=== PATIENT | male | born 1965 | race Caucasian/White ===

== ENCOUNTER 2017-01-27 11:54 | Emergency (ER) | payer MEDICARE ==
[~2017-01-27] VITALS: Ht 167.6 cm; Wt 70.8 kg
[~2017-01-27 11:54] MED LIST: ALPR2TAB7 PO; CARI350T27 PO; DIAZ10TA4 PO; FENT1PAT8 TD; MORP30TA PO; TEMA30CA PO
--- NOTE | 2017-01-27 11:56 | NUR ---
PT BIB RA FOR OVERDOSE, FOUND WITH 3 FENTANYL PATCHES. PT AWAKE ALERT ABLE TO MAKE NEEDS KNOWN. 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 BLOOD SAMPLE COLLECTED SENT TO LAB. PLACED ON MONITOR. AWAITING MD ORDER
[2017-01-27 12:16] LABS: BASOPHILS # (AUTO) 0.1 /CMM (0.0-0.2); BASOPHILS % (AUTO) 0.6 % (0.0-2.0); EOSINOPHILS # (AUTO) 0.6 /CMM (0.0-0.7); HEMATOCRIT 35 % (39-51); HEMOGLOBIN 11.9 g/dL (13.5-17.5); LYMPHOCYTES # (AUTO) 2.4 /CMM (0.8-4.8); LYMPHOCYTES % (AUTO) 20.8 % (20.0-44.0); MEAN CORPUSCULAR HEMOGLOBIN 33 PG (26.0-33.0); MEAN CORPUSCULAR HGB CONC 34 g/dl (31.0-36.0); MEAN CORPUSCULAR VOLUME 96 fL (80-96); MONOCYTES # (AUTO) 0.7 /CMM (0.1-1.30); MONOCYTES % (AUTO) 6.1 % (2.0-12.0); NEUTROPHILS # (AUTO) 7.9 /CMM (1.8-8.9); NEUTROPHILS % (AUTO) 67.5 % (43.0-81.0); PLATELET COUNT (AUTO) 190 /CMM (150-450); RDW COEFFICIENT OF VARIATION 14.1 (11.5-15.0); RED BLOOD CELL COUNT(AUTO) 3.66 MIL/uL (4.5-6.0); WHITE BLOOD COUNT (AUTO) 11.7 K/uL (4.3-11.0)
--- NOTE | 2017-01-27 12:20 | NUR ---
GAVE PT URINAL WAITING FOR URINE SAMPLE. MD LAUREANO
[2017-01-27 12:26] LABS: CALCIUM, SERUM 8.9 mg/dL (8.5-10.1); CARBON DIOXIDE 30 mmol/L (21-32); CHLORIDE 104 mmol/L (98-107); GFR 79 mL/min (>60); GLUCOSE 97 mg/dL (74-106); POTASSIUM 4.5 mmol/L (3.5-5.1); SODIUM SERUM 141 mmol/L (136-145); UREA NITROGEN, BLOOD 15 mg/dL (7-18)
[2017-01-27 12:36] LABS: ACETAMINOPHEN 0 ug/ml (10-30); ALANINE AMINOTRANSFERASE 22 U/L (12-78); ALBUMIN 3.5 g/dL (3.4-5.0); ALCOHOL, BLOOD < 3 mg/dL (0-0); ALKALINE PHOSPHATASE 97 U/L (46-116); ASPARTATE AMINOTRANSFERASE 20 U/L (15-37); BILIRUBIN,DIRECT 0.1 mg/dL (0.0-0.2); BILIRUBIN,TOTAL 0.3 mg/dL (0.2-1.0); SALICYLATE 6.1 mg/dL (2.8-20.0); TOTAL PROTEIN, SERUM 6.7 g/dL (6.4-8.2)
--- NOTE | 2017-01-27 14:13 | NUR ---
URINE SAMPLE COLLECTED SENT TO LAB
[2017-01-27 14:26] LABS: PHENCYCLIDINE SCREEN,URINE NEGATIVE (NEGATIVE)
[2017-01-27 14:27] LABS: CANNABINOID, URINE POSITIVE (NEGATIVE)
--- NOTE | 2017-01-27 15:18 | NUR ---
IV removed. Catheter intact and site benign. Pressure and 4x4 applied to site. No bleeding noted.Patient discharged to home in stable condition. Written and verbal after care instructions given. Patient verbalizes understanding of instruction.
[2017-01-27 15:19] VITALS: BP 112/78
== END 2017-01-27 15:20 | disposition home or self-care (01) ==
LOC: ER 11:55
DX: G92 Toxic encephalopathy (principal); G89.29 Other chronic pain; F17.200 Nicotine dependence, unspecified, uncomplicated; Z88.1 Allergy status to other antibiotic agents
CPT/HCPCS: 36415; 80048; 80076; 80305; 80329; 85025; 99284; A4606; G0480 ×2; G6039-TC; Z7610

== ENCOUNTER 2017-03-24 18:06 | Emergency (ER) | payer MEDICARE ==
[~2017-03-24] VITALS: Ht 180.3 cm; Wt 72.6 kg
--- NOTE | 2017-03-24 18:12 | NUR ---
PT BIBRA TO ER BED 11. C/O GENERALIZED WEAKNESS. POSSIBLE OD TO SOMA. LETHARGIC BUT AWAKE AND VERBALLY RESPONSIVE. PLACED ON MONITOR. STABLE VITALS. AWAITING ,MD BERMUDEZ.
--- NOTE | 2017-03-24 18:21 | NUR ---
DR GROSSMAN AT BEDSIDE FOR EVAL.
[2017-03-24] MEDS ORDERED: IV NS 0.9% 1,000 ML BAG IV ONE (18:30)
[2017-03-24] MEDS ORDERED: IV NS 0.9% 1,000 ML ONE (18:31)
[2017-03-24] MEDS ORDERED: IV SET PRIMARY 1 EA INFUS.SET MC ONE (18:31)
[2017-03-24 18:32] LABS: BASOPHILS % (AUTO) 0.5 % (0.0-2.0); EOSINOPHILS # (AUTO) 0.5 /CMM (0.0-0.7); EOSINOPHILS % (AUTO) 6.4 % (0.0-6.0); HEMATOCRIT 38 % (39-51); HEMOGLOBIN 12.6 g/dL (13.5-17.5); LYMPHOCYTES # (AUTO) 2.6 /CMM (0.8-4.8); LYMPHOCYTES % (AUTO) 33.7 % (20.0-44.0); MEAN CORPUSCULAR HEMOGLOBIN 32 PG (26.0-33.0); MEAN CORPUSCULAR HGB CONC 33 g/dl (31.0-36.0); MEAN CORPUSCULAR VOLUME 96 fL (80-96); MONOCYTES # (AUTO) 0.5 /CMM (0.1-1.30); MONOCYTES % (AUTO) 7.1 % (2.0-12.0); NEUTROPHILS % (AUTO) 52.3 % (43.0-81.0); PLATELET COUNT (AUTO) 183 /CMM (150-450); RDW COEFFICIENT OF VARIATION 14.4 (11.5-15.0); RED BLOOD CELL COUNT(AUTO) 3.96 MIL/uL (4.5-6.0); WHITE BLOOD COUNT (AUTO) 7.6 K/uL (4.3-11.0)
[2017-03-24 18:42] LABS: CALCIUM, SERUM 8.4 mg/dL (8.5-10.1); CREATININE 1.2 mg/dL (0.6-1.3); POTASSIUM 4.2 mmol/L (3.5-5.1)
--- NOTE | 2017-03-24 20:05 | NUR ---
IV removed. Catheter intact and site benign. Pressure and 4x4 applied to site. No bleeding noted.
--- NOTE | 2017-03-24 20:07 | NUR ---
PT IS AAO, AMBULATORY W/ STREADY GAIT. STATES WANT TO GO HOME. D/C IN STABLE CONDITION.
[2017-03-24 20:09] VITALS: BP 118/76
== END 2017-03-24 20:09 | disposition home or self-care (01) ==
LOC: ER 18:09
DX: T42.8X1A Poisoning by antiparkinsonism drugs and other central muscle-tone depressants, accidental (unintentional), initial encounter (principal); E86.0 Dehydration; D64.9 Anemia, unspecified; M54.5 Low back pain; G89.29 Other chronic pain; J44.9 Chronic obstructive pulmonary disease, unspecified; Z88.1 Allergy status to other antibiotic agents; F17.200 Nicotine dependence, unspecified, uncomplicated; Y92.89 Other specified places as the place of occurrence of the external cause
CPT/HCPCS: 36415; 80048; 85025; 99284; A4606; J7030; Z7610

== ENCOUNTER 2017-07-21 12:17 | Inpatient (IN) | payer MEDICARE ==
[~2017-07-21] VITALS: Ht 177.8 cm; Wt 72.6 kg
[2017-07-21] MEDS ORDERED: NALOXONE HCL 0.4 MG/ML AMPUL IV ONE (12:30)
--- NOTE | 2017-07-21 12:30 | NUR ---
PT BIBA FOR POSSIBLE OVERDOSE, AMS NOTED. NOTED 4 FENTANYL PATCH ON BOTH ARMS. MD AT BS FOR EVAL. RTS AT BS. IV ACCESS MANUFACTURING LABORER. SAFETY AND COMFORT MEASURES PROVIDED. WILL MONITOR.
[2017-07-21 12:35] LABS: BASOPHILS % (AUTO) 0.3 % (0.0-2.0); EOSINOPHILS # (AUTO) 0.7 /CMM (0.0-0.7); EOSINOPHILS % (AUTO) 4.4 % (0.0-6.0); HEMATOCRIT 37 % (39-51); HEMOGLOBIN 12.4 g/dL (13.5-17.5); LYMPHOCYTES # (AUTO) 3.3 /CMM (0.8-4.8); LYMPHOCYTES % (AUTO) 20.1 % (20.0-44.0); MEAN CORPUSCULAR HEMOGLOBIN 33 PG (26.0-33.0); MEAN CORPUSCULAR HGB CONC 33 g/dl (31.0-36.0); MEAN CORPUSCULAR VOLUME 100 fL (80-96); MONOCYTES % (AUTO) 6.3 % (2.0-12.0); NEUTROPHILS # (AUTO) 11.2 /CMM (1.8-8.9); NEUTROPHILS % (AUTO) 68.9 % (43.0-81.0); PLATELET COUNT (AUTO) 192 /CMM (150-450); RDW COEFFICIENT OF VARIATION 14.9 (11.5-15.0); RED BLOOD CELL COUNT(AUTO) 3.74 MIL/uL (4.5-6.0); WHITE BLOOD COUNT (AUTO) 16.3 K/uL (4.3-11.0)
--- NOTE | 2017-07-21 12:40 | NUR ---
XRAY DONE AT BS.
[2017-07-21 12:49] LABS: CREATININE 1.2 mg/dL (0.6-1.3)
[2017-07-21 12:53] LABS: ABG BASE EXCESS 7.4 mmol/L; ABG OXYGEN SATURATION 96.3 % (92.0-98.5); ABG PH 7.477 (7.350-7.450); ABG PO2 84.8 mmHg (75.0-100.0); AaDO2 12.2 mmHg; COHb 2.4 % (0.5-1.5); MetHb 0.4 % (0.0-1.5); O2Hb 93.6 % (94.0-97.0); SITE, ABG Right Radial; VENT MODE, BG ROOM AIR
[2017-07-21 12:55] LABS: ALBUMIN 3.8 g/dL (3.4-5.0); BILIRUBIN,TOTAL 0.2 mg/dL (0.2-1.0); TOTAL PROTEIN, SERUM 6.9 g/dL (6.4-8.2)
[2017-07-21 13:03] VITALS: BP 120/67
--- NOTE | 2017-07-21 14:14 | NUR ---
PT AWAKE, ALERT AND ORIENTED ADMITS TO TAKING 4 SOMA. DENIES SI. NURSING QUALITY ENGINEERING MANAGER AT BS. VSS.
[2017-07-21] MEDS ORDERED: DIAZ10TA4 PO (14:46)
[2017-07-21] MEDS ORDERED: TEMA30CA PO (14:46)
[2017-07-21] MEDS ORDERED: FENT1PAT6 TD (14:46)
[2017-07-21] MEDS ORDERED: ALPR2TAB7 PO (14:46)
[2017-07-21] MEDS ORDERED: CARI350T PO (14:46)
[2017-07-21] MEDS ORDERED: ALBU8.5H2 IH (14:46)
--- NOTE | 2017-07-21 14:46 | NUR ---
[facility] paged via exchange - Walleptvaibhav
--- NOTE | 2017-07-21 14:55 | NUR ---
report given to Jonny BAEZ, continue plan of care.
[2017-07-21 15:34] LABS: ALCOHOL, BLOOD < 3 mg/dL (0-0); SALICYLATE 4.2 mg/dL (2.8-20.0)
[2017-07-21 15:35] LABS: ACETAMINOPHEN < 2 ug/ml (10-30)
== END 2017-07-21 15:31 | disposition left against medical advice (07) | DRG 917 ==
LOC: ER 12:18 → TELE-TD 14:49
PROVIDERS: ADMIT Internal Medicine; ATTEND Internal Medicine
DX: T42.8X1A Poisoning by antiparkinsonism drugs and other central muscle-tone depressants, accidental (unintentional), initial encounter (principal); G92 Toxic encephalopathy; Y92.009 Unspecified place in unspecified non-institutional (private) residence as the place of occurrence of the external cause; Z79.899 Other long term (current) drug therapy; G89.29 Other chronic pain; Z88.1 Allergy status to other antibiotic agents; Z91.010 Allergy to peanuts
CPT/HCPCS: 36415; 36600; 70450-TC; 71010-TC; 80048-TC; 80076-TC; 85025-TC; 87081-TC; A4606; G0480; Z7610

== ENCOUNTER 2018-02-02 14:00 | Emergency (ER) | payer MEDICARE ==
[~2018-02-02] VITALS: Ht 172.7 cm; Wt 74.8 kg
[~2018-02-02 14:00] MED LIST changes: +ALBU8.5H8 IH; +CARI350T PO; -CARI350T27 PO; +FENT1PAT6 TD; -FENT1PAT8 TD; -MORP30TA PO
--- NOTE | 2018-02-02 14:49 | NUR ---
PT REFUSED CT SCAN. MD LAUREANO.
--- NOTE | 2018-02-02 15:33 | NUR ---
Patient discharged to home in stable condition. Written and verbal after care instructions given. Patient verbalizes understanding of instruction.IV removed. Catheter intact and site benign. Pressure and 4x4 applied to site. No bleeding noted. VSS upon discharge
[2018-02-02 15:37] VITALS: BP 128/81
== END 2018-02-02 15:47 | disposition home or self-care (01) ==
LOC: ER 14:03
DX: S01.81XA Laceration without foreign body of other part of head, initial encounter (principal); S80.811A Abrasion, right lower leg, initial encounter; G89.29 Other chronic pain; F17.200 Nicotine dependence, unspecified, uncomplicated; Z88.1 Allergy status to other antibiotic agents; Z60.2 Problems related to living alone; W01.0XXA Fall on same level from slipping, tripping and stumbling without subsequent striking against object, initial encounter; Y93.01 Activity, walking, marching and hiking; Y92.480 Sidewalk as the place of occurrence of the external cause; Y99.8 Other external cause status
CPT/HCPCS: 12011; 99283; A4606; A6402 ×2; Z7610

== ENCOUNTER 2019-07-12 12:11 | Inpatient (IN) | payer MEDICARE ==
[~2019-07-12] VITALS: Ht 177.8 cm; Wt 60.8 kg
[2019-07-12 12:53] LABS: BASOPHILS % (AUTO) 0.3 % (0.0-2.0); EOSINOPHILS % (AUTO) 0.5 % (0.0-6.0); HEMATOCRIT 37 % (39-51); HEMOGLOBIN 12.5 g/dL (13.5-17.5); LYMPHOCYTES # (AUTO) 2.2 /CMM (0.8-4.8); LYMPHOCYTES % (AUTO) 13.6 % (20.0-44.0); MEAN CORPUSCULAR HGB CONC 34 g/dl (31.0-36.0); MEAN CORPUSCULAR VOLUME 99 fL (80-96); MONOCYTES # (AUTO) 1.4 /CMM (0.1-1.30); MONOCYTES % (AUTO) 8.6 % (2.0-12.0); NEUTROPHILS # (AUTO) 12.4 /CMM (1.8-8.9); PLATELET COUNT (AUTO) 285 /CMM (150-450); RED BLOOD CELL COUNT(AUTO) 3.75 MIL/uL (4.5-6.0); WHITE BLOOD COUNT (AUTO) 16.1 K/uL (4.3-11.0)
--- NOTE | 2019-07-12 12:59 | NUR ---
CALLED [facility], PAGED VIKI
[2019-07-12 13:07] LABS: CALCIUM, SERUM 8.9 mg/dL (8.5-10.1); CREATININE 1.9 mg/dL (0.6-1.3)
[2019-07-12 13:11] LABS: POTASSIUM 2.6 mmol/L (3.5-5.1)
[2019-07-12 13:14] LABS: ALBUMIN 3.9 g/dL (3.4-5.0); BILIRUBIN,DIRECT 0.2 mg/dL (0.0-0.2); BILIRUBIN,TOTAL 0.7 mg/dL (0.2-1.0)
--- NOTE | 2019-07-12 13:16 | NUR ---
CALLED NURSING SUP FOR BED
[2019-07-12] MEDS ORDERED: DICY10SO PO (13:36)
[2019-07-12] MEDS ORDERED: OXYC10SY PO (13:36)
[2019-07-12] MEDS ORDERED: POTASSIUM CHLORIDE 20 MEQ TAB.PRT.SR PO ONE ×2 (13:51→14:00)
[2019-07-12] MEDS ORDERED: ASPIRIN 325 MG TABLET ONE (13:51)
[2019-07-12] MEDS ORDERED: POTASSIUM CL. PREMIX PERIPHER. 50 ML ONE (13:51)
[2019-07-12] MEDS ORDERED: ASPIRIN 325 MG TABLET PO ONE (14:00)
[2019-07-12] MEDS: POTASSIUM CL. PREMIX PERIPHER. 50 ML IV SCH ×4 (14:14→18:20)
--- NOTE | 2019-07-12 14:23 | NUR ---
REPORT GIVEN TO SESAR RN FOR CHERIE PT WILL BE TRANSPORTED TO 3RD FLOOR VIA ACLS PROTOCOL
--- NOTE | 2019-07-12 15:00 | NUR ---
MS/RN NOTE THE PATIENT IS RECEIVED ON A GURNEY. ASSISTED THE PATIENT TO BED. PATIENT ALERT AND ORIENTED X3. DENIES PAIN AT THIS TIME. IN ROOM AIR AND DENIES SOB. RESPIRATION REGULAR AND UNLABORED. RFA G 20 PATENT AND SALINE LOCKED. PATIENT IS GIVEN ORIENTED TO THE ROOM/UNIT AND HE VERBALIZED UNDERSTANDING. PATIENT IS NOTED TO OVERESTIMATES HIS PHYSICAL ABILITIES AND IS FALL RISK. VERBAL CUES ARE GIVEN TO INCREASE SAFETY AWARENESS AND PATIENT VERBALIZED UNDERSTANDING. BED LOW AND LOCKED. BED ALARM ON. CALL LIGHT WITHIN REACH. WILL CONTINUE TO MONITOR.
[2019-07-12 15:30] VITALS: BP 123/70
[2019-07-12 16:00] VITALS: BP 123/70
[2019-07-12] MEDS ORDERED: MAG HYDROX/AL HYDROX/SIMETH 30 ML UDC PO PRN (16:00)
[2019-07-12] MEDS ORDERED: HYDROCODONE/APAP 5/325MG 1 EACH TABLET PO PRN (16:00)
[2019-07-12] MEDS ORDERED: HYDROCODONE/APAP 10/325MG 1 EA TABLET PO PRN (16:00)
[2019-07-12] MEDS ORDERED: ZOLPIDEM TARTRATE 5 MG TABLET PO PRN (16:00)
[2019-07-12] MEDS ORDERED: ONDANSETRON HCL/PF 4 MG/2 ML VIAL IVP PRN (16:00)
[2019-07-12] MEDS ORDERED: MORPHINE SULFATE INJ 2 MG/ML DISP.SYRIN IV PRN (16:00)
[2019-07-12] MEDS ORDERED: Z GUARD REMEDY 2 OZ OINT TP PRN (16:00)
[2019-07-12] MEDS ORDERED: ACETAMINOPHEN 325 MG TABLET PO PRN (16:00)
[2019-07-12] MEDS ORDERED: MAGNESIUM HYDROXIDE 30 ML UDC PO PRN (16:00)
[2019-07-12] MEDS: DIAZEPAM 10 MG TABLET PO SCH (16:58)
[2019-07-12] MEDS: ENOXAPARIN SODIUM 40 MG/0.4 ML DISP.SYRIN SQ SCH (16:59)
--- NOTE | 2019-07-12 17:11 | NUR ---
MS/RN NOTE RECEIVED ORDER FROM DR DREW TO REPEAT TROPONIN 07/12/19 AT 1900. THE ORDER IS READ BACK, VERIFIED. NOTED AND CARRIED OUT.
[2019-07-12] MEDS: ALPRAZOLAM 1 MG TABLET PO SCH ×2 (17:54→21:00)
--- NOTE | 2019-07-12 18:20 | NUR ---
TELE/RN NOTE THE PATIENT IS ALERT AND ORIENTED X3. DENIES PAIN. IN ROOM AIR AND SATURATION IS AT 98%. DENIES SOB. RESPIRATION REGULAR AND UNLABORED. EXTERNAL TELE BOX READING IS S TACHY 117. THE PATIENT IN STABLE CONDITION RFA G 20 PATENT AND POTASSIUM CHLORIDE INFUSING PER ORDER AND NO S/S INFILTRATION NOTED. BED LOW AND LOCKED. BED ALARM ON. CALL LIGHT WITHIN REACH. WILL ENDORSE TO DETENTION DEPUTY.
--- NOTE | 2019-07-12 19:32 | NUR ---
SATELLITE INSTALLER NOTES RECEIVED PATIENT ASLEEP IN BED WITH NO DISTRESS NOTED. CALL LIGHT WITHIN REACH. PERIPHERAL LINE INTACT AND PATENT. NO C/O PAIN OR DISCOMFORT. ENCOURAGED USE OF CALL LIGHT FOR ASSISTANCE AND VERBALIZED GOOD UNDERSTANDING. BED IN LOW LOCK SETTING. ROOM FREE OF CLUTTER AND BELONGINGS KEPT NEAR BEDSIDE. BED ALARM ON AND FUNCTIONING PROPERLY. WILL CONTINUE TO MONITOR.
[2019-07-12 20:00] VITALS: BP 102/68
[2019-07-12] MEDS: TEMAZEPAM 15 MG CAPSULE PO SCH (21:33)
[2019-07-12 21:42] VITALS: BP 134/70
[2019-07-13] VITALS: BP 108/60
[2019-07-13 04:08] VITALS: BP 111/69
[2019-07-13] MEDS ORDERED: IV NS 0.9% 1,000 ML IV PRN (05:00)
--- NOTE | 2019-07-13 06:36 | NUR ---
TURFGRASS MANAGEMENT PROFESSOR NOTES PATIENT AWAKE IN BED WITH NO DISTRESS NOTED. CALL LIGHT WITHIN REACH. ALL DUE MEDS GIVEN ORDERED WITH NO ASE NOTED. NO FURTHER C/O PAIN OR DISCOMFORT. PERIPHERAL LINE INTACT AND PATENT. ALL BELONGINGS KEPT NEAR BEDSIDE. BED IN LOW LOCK SETTING. BED ALARM ON AND FUNCTIONING PROPERLY. WILL ENDORSE TO ONCOMING SHIFT.
[2019-07-13 06:38] LABS: BASOPHILS % (AUTO) 0.3 % (0.0-2.0); EOSINOPHILS % (AUTO) 4.2 % (0.0-6.0); HEMATOCRIT 37 % (39-51); HEMOGLOBIN 12.5 g/dL (13.5-17.5); LYMPHOCYTES # (AUTO) 1.5 /CMM (0.8-4.8); LYMPHOCYTES % (AUTO) 11.7 % (20.0-44.0); MEAN CORPUSCULAR HGB CONC 34 g/dl (31.0-36.0); MEAN CORPUSCULAR VOLUME 101 fL (80-96); MONOCYTES # (AUTO) 1.3 /CMM (0.1-1.30); MONOCYTES % (AUTO) 10.2 % (2.0-12.0); NEUTROPHILS # (AUTO) 9.5 /CMM (1.8-8.9); NEUTROPHILS % (AUTO) 73.6 % (43.0-81.0); PLATELET COUNT (AUTO) 265 /CMM (150-450); RED BLOOD CELL COUNT(AUTO) 3.72 MIL/uL (4.5-6.0); WHITE BLOOD COUNT (AUTO) 12.9 K/uL (4.3-11.0)
[2019-07-13 06:46] LABS: CALCIUM, SERUM 8.9 mg/dL (8.5-10.1); CREATININE 1.2 mg/dL (0.6-1.3); MAGNESIUM 2.2 mg/dL (1.8-2.4); PHOSPHORUS 2.8 mg/dL (2.5-4.9)
--- NOTE | 2019-07-13 07:30 | NUR ---
PER DIEM RN OPENING NOTES RECEIVED PT IN BED, AWAKE. A/O X2-3. TOLERATING RA, WITH NO ACUTE RESPIRATORY DISTRESS NOTED. ON TELEMONITORING SR WITH HR OF 79. PT DENIES ANY PAIN OR DISCOMFORT AT THIS TIME. PT CONCERNED OF HAVING HIM PROTECTED BY POLICE. IVF NS AT 75ML/HR TO RFA G20, INTACT AND FLUID INFUSING WELL. PT KEPT COMFORTABLE. CALL LIGHT KEPT WITHIN REACH. PT'S BED KEPT IN LOWEST LOCKED POSITION WITH SR X3. WILL CONTINUE PLAN OF CARE.
[2019-07-13 08:00] VITALS: BP 106/80
[2019-07-13] MEDS: DIAZEPAM 10 MG TABLET PO SCH ×3 (08:26→16:43)
[2019-07-13] MEDS: ALPRAZOLAM 1 MG TABLET PO SCH ×4 (08:26→20:43)
[2019-07-13] MEDS: DICYCLOMINE HCL 10 MG CAPSULE PO SCH (08:27)
[2019-07-13] MEDS: ENSURE ENLIVE CHOC 237 ML CAN PO SCH ×3 (08:32→16:50)
[2019-07-13 08:40] LABS: POTASSIUM 2.8 mmol/L (3.5-5.1)
[2019-07-13] MEDS ORDERED: POTASSIUM CHLORIDE 10 MEQ/50 ML PREMIXED IVPB FOR PERIPHERAL LINE IV ONE (11:00)
[2019-07-13] MEDS: POTASSIUM CL. PREMIX PERIPHER. 50 ML IV SCH ×2 (11:30→12:20)
--- NOTE | 2019-07-13 11:49 | NUR ---
RN NOTES STEEL DIVISION SUPERVISOR/TS ORDERED PSYCH CONSULT. FACE SHEET FAXED TO [employer]. AWAITING FOR CONSULT.
--- NOTE | 2019-07-13 12:22 | NUR ---
RN NOTES PT DID NOT FINISH THE 1ST BAG OF POTASSIUM PT DOESN'T WANT ANY IVS [id number] INCLUDING HYDRATION. MADE AWARE. AWAITING FOR RESPONSE.
--- NOTE | 2019-07-13 12:45 | NUR ---
RN NOTES HOSPITALIST/STATION USHER/TS ORDERED TO CHANGE POTASSIUM SAME DOSE PO. AND OK TO DC IV HYDRATION PER PT'S PREFERENCE.
[2019-07-13] MEDS ORDERED: POTASSIUM CHLORIDE 20 MEQ TAB.PRT.SR PO ONE (13:00)
--- NOTE | 2019-07-13 15:59 | NUR ---
RN NOTES PT SEEN AND EVALUATED BY DR KIM GRIFFITH EARLIER. PT SHOWED PROOF OF OLD MEDICATIONS LIST. PT REQUESTED OXYCODONE AND FENTANYL TO BE GIVEN TO HIM. RN RECEIVED ORDER FROM EEG TECHNOLOGIST/TS FOR OXYCODONE 20MG Q8 PRN AND FENTANYL 50MCG Q3DAYS. ORDERS PLACED. PT MADE AWARE.
[2019-07-13] MEDS ORDERED: FENTANYL TD PATCH (50 MCG/HR) 50 MCG/HR PATCH.TD72 TD SCH (16:00)
[2019-07-13] MEDS ORDERED: MORPHINE SULFATE INJ 2 MG/ML DISP.SYRIN IV PRN (16:30)
[2019-07-13] MEDS ORDERED: HYDROCODONE/APAP 10/325MG 1 EA TABLET PO PRN (16:30)
[2019-07-13] MEDS: oxyCODONE HCL SR 20MG TAB.SR.12H PO PRN (16:43)
--- NOTE | 2019-07-13 18:42 | NUR ---
MS RN CLOSING NOTES PT IN BED, AWAKE. A/O X2-3. TOLERATING RA, WITH NO ACUTE RESPIRATORY DISTRESS NOTED. PT DENIES ANY PAIN OR DISCOMFORT AT THIS MOMENT. PT REFUSED IV HYDRATION OR ANY IV MEDS, ONCOLOGY REP/TS MADE AWARE. ALL NEEDS AND CARE ATTENDED. PT KEPT COMFORTABLE. CALL LIGHT KEPT WITHIN REACH. PT'S BED KEPT IN LOWEST LOCKED POSITION WITH SR X3. WILL ENDORSE TO INCOMING NIGHT NURSE FOR CHERIE.
--- NOTE | 2019-07-13 20:00 | NUR ---
MS RN NOTES RECEIVED PATIENT AWAKE IN BED WITH NO DISTRESS NOTED. CALL LIGHT WITHIN REACH. NO C/O PAIN OR DISCOMFORT. PATIENT NOTED TRYING TO REMOVE PERIPHERAL LINE AND REFUSED REINSERTION. PATIENT STATED, "I DONT WANT ANY IV IN ME OR ANY MEDICINE GOING THROUGH AN IV OR I'M JUST GONA KEEP RIPPING IT OFF." EXPLANATION OF RISKS/BENEFITS GIVEN. ENCOURAGED USED OF CALL LIGHT AND VERBALIZED GOOD UNDERSTANDING. BED IN LOW LOCK SETTING. BED ALARM ON AND FUNCTIONING PROPERLY. WILL ENDORSE TO ONCOMING SHIFT.
[2019-07-13 20:21] VITALS: BP 107/81
[2019-07-13] MEDS: TEMAZEPAM 15 MG CAPSULE PO SCH (21:28)
[2019-07-13] MEDS: ENOXAPARIN SODIUM 40 MG/0.4 ML DISP.SYRIN SQ SCH (21:29)
--- NOTE | 2019-07-14 06:19 | NUR ---
MS RN NOTES PATIENT AWAKE IN BED WITH NO DISTRESS NOTED. CALL LIGHT WITHIN REACH. ALL DUE MEDS GIVEN ORDERED WITH NO ASE. NO C/O PAIN OR DISCOMFORT. ROOM FREE OF CLUTTER AND BELONGINGS KEPT NEAR BEDSIDE. BED IN LOW LOCK SETTING WITH BED ALARM ON AND FUNCTIONING PROPERLY. WILL ENDORSE TO ONCOMING SHIFT.
[2019-07-14] MEDS: oxyCODONE HCL SR 20MG TAB.SR.12H PO PRN (06:41)
[2019-07-14 07:01] LABS: BASOPHILS % (AUTO) 0.3 % (0.0-2.0); EOSINOPHILS % (AUTO) 3.2 % (0.0-6.0); HEMATOCRIT 35 % (39-51); HEMOGLOBIN 11.9 g/dL (13.5-17.5); LYMPHOCYTES # (AUTO) 2.5 /CMM (0.8-4.8); LYMPHOCYTES % (AUTO) 16.8 % (20.0-44.0); MEAN CORPUSCULAR HGB CONC 34 g/dl (31.0-36.0); MEAN CORPUSCULAR VOLUME 100 fL (80-96); MONOCYTES # (AUTO) 1.4 /CMM (0.1-1.30); MONOCYTES % (AUTO) 9.4 % (2.0-12.0); NEUTROPHILS # (AUTO) 10.3 /CMM (1.8-8.9); NEUTROPHILS % (AUTO) 70.3 % (43.0-81.0); PLATELET COUNT (AUTO) 259 /CMM (150-450); RED BLOOD CELL COUNT(AUTO) 3.53 MIL/uL (4.5-6.0); WHITE BLOOD COUNT (AUTO) 14.7 K/uL (4.3-11.0)
--- NOTE | 2019-07-14 07:25 | NUR ---
MS BAEZ OPENING NOTES RECEIVED PT IN BED, AWAKE. A/O X2-3. TOLERATING RA, WITH NO ACUTE RESPIRATORY DISTRESS NOTED. PT DENIES ANY PAIN OR DISCOMFORT AT THIS MOMENT. PT DENIES ANY QUESTIONS OR CONCERNS AT THIS TIME. NO IV SITE PRESENT, WAS AWARE. PT KEPT COMFORTABLE. CALL LIGHT KEPT WITHIN REACH. PT'S BED KEPT IN LOWEST LOCKED POSITION WITH SR X4. ON SEIZURE PRECAUTIONS; PADDED RAILS PRESENT. WILL CONTINUE PLAN OF CARE. Addendum: 07/14/19 at 0757 by HECTOR AYALA RN CORRECTION: PT'S BED KEPT IN LOWEST LOCKED POSITION WITH SR X3. PT NOT ON SEIZURE PRECAUTIONS. WILL CONTINUE PLAN OF CARE.
[2019-07-14 07:53] LABS: CALCIUM, SERUM 9.3 mg/dL (8.5-10.1); PHOSPHORUS 1.8 mg/dL (2.5-4.9); POTASSIUM 3.4 mmol/L (3.5-5.1)
[2019-07-14 08:00] VITALS: BP 110/84
[2019-07-14] MEDS: DICYCLOMINE HCL 10 MG CAPSULE PO SCH (08:30)
[2019-07-14] MEDS: ENSURE ENLIVE CHOC 237 ML CAN PO SCH ×2 (08:30→12:07)
[2019-07-14] MEDS: ALPRAZOLAM 1 MG TABLET PO SCH ×2 (08:30→12:07)
[2019-07-14] MEDS: DIAZEPAM 10 MG TABLET PO SCH ×2 (08:30→12:07)
[2019-07-14] MEDS ORDERED: POTASSIUM CHLORIDE 20 MEQ TAB.PRT.SR PO SCH (10:00)
[2019-07-14] MEDS ORDERED: K PHOS NEUTRAL 250 MG TABLET PO ONE (14:00)
--- NOTE | 2019-07-14 15:30 | NUR ---
MS SUMMER LAW ASSOCIATE NOTES PT WENT AMA SUPPOSEDLY GOING HOME BUT PT REFUSED OFFERED SNF BY CM; HOSPITALIST/DISHWASHER PREPARER/TS AWARE. PT DENIES HE CANNOT WALK AND READ, BUT ABLE TO READ OWN RECORDS FROM PREVIOUS HOSPITALIZATION AND PT ABLE TO WALK BACK AND FORTH THE ROOM AND NURSES STATIONS MULTIPLE TIMES. PT TOLERATING RA, WITH NO ACUTE RESPIRATORY DISTRESS NOTED. PT DENIES ANY PAIN OR DISCOMFORT. PT REFUSED SKIN ASSESSMENT. PT BEHAVIOR IS MORE AGGRESSIVE AT THE TIME OF DISCHARGE. MALE NURSE/RN/MACKENZIE TALKED AND EXPLAINED TO PT THE SITUATION AND PT'S PREFERENCE OF GOING AMA; PT SIGNED AMA FORM HIMSELF. PT LEFT THE UNIT ESCORTED BY MALE RN/MACKENZIE AND 1 SECURITY PERSONNEL TO THE LOBBY. PT ABLE TO WALK FROM UNIT TO THE LOBBY WITH NO COMPLAINTS OF PAIN. CN/LEANDRO AWARE OF THE SITUATION AND DNP/TS MADE INFORMED WELL. DISCHARGE RECORDS/EXIT CARE WERE GIVEN TO THE PATIENT. PT LEFT AT 1500.
== END 2019-07-14 15:15 | disposition left against medical advice (07) | DRG 551 ==
LOC: ER 12:19 → MED 13:57 → TELE 15:01 → MED 07-13 11:37
PROVIDERS: ADMIT Internal Medicine; ATTEND Nurse Practitioner Acute Care
DX: M48.00 Spinal stenosis, site unspecified (principal); N17.0 Acute kidney failure with tubular necrosis; E87.1 Hypo-osmolality and hyponatremia; E44.0 Moderate protein-calorie malnutrition; F13.20 Sedative, hypnotic or anxiolytic dependence, uncomplicated; F33.9 Major depressive disorder, recurrent, unspecified; F11.20 Opioid dependence, uncomplicated; E86.0 Dehydration; R20.0 Anesthesia of skin; T50.905A Adverse effect of unspecified drugs, medicaments and biological substances, initial encounter; Y92.009 Unspecified place in unspecified non-institutional (private) residence as the place of occurrence of the external cause; E87.6 Hypokalemia; G89.29 Other chronic pain; F41.9 Anxiety disorder, unspecified; N18.9 Chronic kidney disease, unspecified; E78.5 Hyperlipidemia, unspecified; Z88.1 Allergy status to other antibiotic agents; Z91.010 Allergy to peanuts; Z79.899 Other long term (current) drug therapy; D72.829 Elevated white blood cell count, unspecified; F22 Delusional disorders; Z76.5 Malingerer [conscious simulation]
CPT/HCPCS: 36415; 80048-TC; 80061-TC; 80076-TC; 83690-TC; 83735-TC; 84100-TC; 84484-TC; 85025-TC; 87081-TC; 97116-TC; 97530-TC; G0378; J1650; J3480; J7030; J7040; J7050

== ENCOUNTER 2022-06-01 11:43 | Emergency (ER) | payer MEDICARE, OTHER ==
[~2022-06-01] VITALS: Ht 180.3 cm; Wt 65.8 kg
[~2022-06-01 11:43] MED LIST changes: -ALBU8.5H8 IH; -CARI350T PO; +DICY10SO PO; -FENT1PAT6 TD; +OXYC10SY PO
[2022-06-01 11:54] VITALS: BP 148/86
--- NOTE | 2022-06-01 12:04 | NUR ---
COVID SWAB COLLECTED AND SENT TO LAB
[2022-06-01 12:32] LABS: BASOPHILS % (AUTO) 0.3 % (0.0-2.0); HEMATOCRIT 37 % (39-51); HEMOGLOBIN 12.1 g/dL (13.5-17.5); LYMPHOCYTES # (AUTO) 1.3 K/uL (0.8-4.8); MEAN CORPUSCULAR HGB CONC 33 g/dl (31.0-36.0); MEAN CORPUSCULAR VOLUME 96 fL (80-96); MONOCYTES # (AUTO) 0.6 K/uL (0.1-1.30); MONOCYTES % (AUTO) 5.3 % (2.0-12.0); NEUTROPHILS # (AUTO) 8.8 K/uL (1.8-8.9); NEUTROPHILS % (AUTO) 82.4 % (43.0-81.0); PLATELET COUNT (AUTO) 228 K/uL (150-450); RED BLOOD CELL COUNT(AUTO) 3.89 MIL/uL (4.5-6.0); WHITE BLOOD COUNT (AUTO) 10.7 K/uL (4.3-11.0)
[2022-06-01 12:50] LABS: CALCIUM, SERUM 9.6 mg/dL (8.5-10.1); CARBON DIOXIDE 22 mmol/L (21-32); CHLORIDE 100 mmol/L (98-107); CREATININE 1.3 mg/dL (0.6-1.3); GLUCOSE 126 mg/dL (74-106); POTASSIUM 3.9 mmol/L (3.5-5.1); SODIUM SERUM 134 mmol/L (136-145); UREA NITROGEN, BLOOD 38 mg/dL (7-18)
[2022-06-01 12:56] LABS: ALANINE AMINOTRANSFERASE 28 U/L (12-78); ALBUMIN 4.5 g/dL (3.4-5.0); ALCOHOL, BLOOD < 3 mg/dL (0-0); ALKALINE PHOSPHATASE 120 U/L (46-116); ASPARTATE AMINOTRANSFERASE 22 U/L (15-37); BILIRUBIN,DIRECT 0.1 mg/dL (0.0-0.2); BILIRUBIN,TOTAL 0.4 mg/dL (0.2-1.0); TOTAL PROTEIN, SERUM 9.2 g/dL (6.4-8.2)
[2022-06-01 12:57] LABS: ACETAMINOPHEN < 10 ug/ml (10-30)
[2022-06-01 13:54] LABS: BILIRUBIN,URINE NEGATIVE (NEGATIVE); COLOR,URINE YELLOW (YELLOW); LEUKOCYTE ESTERASE ,URINE NEGATIVE (NEGATIVE); NITRITE, URINE NEGATIVE (NEGATIVE); PH,URINE 5.5 (5.0-8.0); PROTEIN,URINE TRACE mg/dl (NEGATIVE); UGLUCOSE NEGATIVE (NEGATIVE); UROBILINOGEN,URINE 0.2 EU/dL (0.2)
[2022-06-01 14:11] LABS: BACTERIA,URINE 1+ /HPF (None Seen); RBC,URINE 0-2 /HPF (0-2)
--- NOTE | 2022-06-01 14:53 | NUR ---
FACESHEET AND CLINICALS FAXED OVER TO [facility].
--- NOTE | 2022-06-01 16:06 | NUR ---
ACCEPTED AT [facility]. TRANSPORT ETA [id number]
--- NOTE | 2022-06-01 16:35 | NUR ---
PICKED UP BY TRANSPORT IN STABLE CONDITION
--- NOTE | 2022-06-01 17:07 | NUR ---
Patient discharged to [facility], accompanied by transportation tech. Written and verbal after care instructions given. Belongings sent w/ patient.
== END 2022-06-01 17:11 ==
LOC: ER 11:47
DX: R45.851 Suicidal ideations (principal); F31.9 Bipolar disorder, unspecified; K50.90 Crohn's disease, unspecified, without complications; G89.29 Other chronic pain; Z20.822 Contact with and (suspected) exposure to COVID-19; Z88.1 Allergy status to other antibiotic agents; Z91.010 Allergy to peanuts
CPT/HCPCS: 36415; 80048-TC; 80076-TC; 81001; 85025-TC; C9803; G0480

== ENCOUNTER 2022-06-18 14:17 | Emergency (ER) | payer MEDICARE, OTHER ==
--- NOTE | 2022-06-18 14:50 | NUR ---
PT WHILE BEING TRIAGED DECIDED NOT TO BE SEEN, STATES HE JUST NEED A TAXI CALLED FOR HIM.
== END 2022-07-17 | disposition left against medical advice (07) ==
LOC: ER 14:20
DX: Z53.21 Procedure and treatment not carried out due to patient leaving prior to being seen by health care provider (principal); R10.9 Unspecified abdominal pain

== ENCOUNTER 2022-07-01 13:30 | Emergency (ER) | payer MEDICARE, OTHER ==
[~2022-07-01] VITALS: Ht 172.7 cm; Wt 75.3 kg
--- NOTE | 2022-07-01 13:31 | NUR ---
DR JALLOH AT BEDSIDE
--- NOTE | 2022-07-01 13:35 | NUR ---
BYSTANDER CALLED 911 - HE WAS SLEEPING AT THE BUS STOP BS - 140, NARCAN 2 MG IVP X 1 GIVEN, NS - 250 IVPB BOLUS GIVEN. TO ER BED 9, HOOKED TO MONITOR, CHANGED TO HOSP GOWN, WARM BLANKET PROVIDED. PATIENT WAKES UP WITH TACTILE STIMULI BUT GOES BACK TO SLEEP IMMEDIATELY. WILL CONTINUE TO MONITOR.
--- NOTE | 2022-07-01 13:57 | NUR ---
PATIENT TAKEN TO CT VIA [facility]
--- NOTE | 2022-07-01 13:57 | NUR ---
URINE SAMPLE COLLECTED AND SENT TO LAB
--- NOTE | 2022-07-01 14:08 | NUR ---
INFORMATION CLERK [employer]OMOBILE CLUB AT BED SIDE
[2022-07-01 14:14] LABS: BILIRUBIN,URINE NEGATIVE (NEGATIVE); COLOR,URINE YELLOW (YELLOW); LEUKOCYTE ESTERASE ,URINE NEGATIVE (NEGATIVE); NITRITE, URINE NEGATIVE (NEGATIVE); PH,URINE 7.5 (5.0-8.0); PROTEIN,URINE NEGATIVE (NEGATIVE); UGLUCOSE NEGATIVE (NEGATIVE); UROBILINOGEN,URINE 0.2 EU/dL (0.2)
[2022-07-01 14:58] LABS: BASOPHILS % (AUTO) 0.4 % (0.0-2.0); EOSINOPHILS % (AUTO) 0.3 % (0.0-6.0); HEMATOCRIT 31 % (39-51); LYMPHOCYTES # (AUTO) 1.8 K/uL (0.8-4.8); LYMPHOCYTES % (AUTO) 17.8 % (20.0-44.0); MEAN CORPUSCULAR HGB CONC 33 g/dl (31.0-36.0); MEAN CORPUSCULAR VOLUME 95 fL (80-96); MONOCYTES # (AUTO) 0.5 K/uL (0.1-1.30); MONOCYTES % (AUTO) 5.3 % (2.0-12.0); NEUTROPHILS # (AUTO) 7.8 K/uL (1.8-8.9); NEUTROPHILS % (AUTO) 76.2 % (43.0-81.0); PLATELET COUNT (AUTO) 301 K/uL (150-450); RED BLOOD CELL COUNT(AUTO) 3.21 MIL/uL (4.5-6.0); WHITE BLOOD COUNT (AUTO) 10.2 K/uL (4.3-11.0)
[2022-07-01 15:48] LABS: CALCIUM, SERUM 8.3 mg/dL (8.5-10.1); CARBON DIOXIDE 30 mmol/L (21-32); CHLORIDE 107 mmol/L (98-107); CREATININE 1.3 mg/dL (0.6-1.3); GLUCOSE 115 mg/dL (74-106); POTASSIUM 4.3 mmol/L (3.5-5.1); SODIUM SERUM 142 mmol/L (136-145); UREA NITROGEN, BLOOD 16 mg/dL (7-18)
[2022-07-01 15:52] LABS: ALANINE AMINOTRANSFERASE 25 U/L (12-78); ALBUMIN 2.5 g/dL (3.4-5.0); ALCOHOL, BLOOD < 3 mg/dL (0-0); ALKALINE PHOSPHATASE 85 U/L (46-116); ASPARTATE AMINOTRANSFERASE 21 U/L (15-37); BILIRUBIN,DIRECT 0.1 mg/dL (0.0-0.2); BILIRUBIN,TOTAL 0.2 mg/dL (0.2-1.0); TOTAL PROTEIN, SERUM 6.1 g/dL (6.4-8.2)
[2022-07-01 15:59] LABS: THYROID STIMULATING HORMONE 1.943 uIU/mL (0.358-3.74)
[2022-07-01 16:06] LABS: ACETAMINOPHEN < 2 ug/ml (10-30)
--- NOTE | 2022-07-01 19:32 | NUR ---
Patient given written and verbal discharge instructions. Patient verbalizes understanding of instructions. Patient is ambulatory with steady gait. Refuses offer of [facility] placement. Patient given list of available shelters in surrounding area. All belongings given back to patient, name band removed. In proper clothing upon discharge
[2022-07-01 19:34] VITALS: BP 110/70
== END 2022-07-01 19:37 | disposition home or self-care (01) ==
LOC: ER 13:32
DX: T42.8X1A Poisoning by antiparkinsonism drugs and other central muscle-tone depressants, accidental (unintentional), initial encounter (principal); R41.82 Altered mental status, unspecified; G89.29 Other chronic pain; F31.9 Bipolar disorder, unspecified; F17.200 Nicotine dependence, unspecified, uncomplicated; Z88.8 Allergy status to other drugs, medicaments and biological substances; Z91.010 Allergy to peanuts; Z79.899 Other long term (current) drug therapy; Y92.521 Bus station as the place of occurrence of the external cause
CPT/HCPCS: 36415; 70450-TC; 71045-TC; 80048-TC; 80076-TC; 83605-TC; 84443-TC; 84484-TC; 85025-TC; 85730-TC; 87040-TC; 87086-TC; G0480